=== PATIENT | female | born 1955 | race Caucasian/White ===

== ENCOUNTER 2017-04-18 08:20 | Day surgery (SDC) | payer BC ==
--- NOTE | ~2017-04-18 | OP ---
Record Of Operation [facility] [address] [place]. [address] NAME: KATIE MITCHELL : 57 STATUS : [facility]#: [id number] AGE: 61 ADM/REG DATE : 04/18/17 MR#: [id number] REPORT SERV DATE: 04/18/17 DICTATED BY: TOÑO WILLIAMSON DATE: 04/18/17 REPORT STATUS : Draft TRANSCRIBED BY: MODL DATE: 04/18/17 DATE OF PROCEDURE: 04/18/2017 PREOPERATIVE DIAGNOSIS: Right ureteropelvic junction stone. POSTOPERATIVE DIAGNOSIS: Right ureteropelvic junction stone. PROCEDURE PERFORMED: Cystoscopy, right retrograde pyelogram, right flexible ureterorenoscopy, holmium laser stone fragmentation, and stent placement. SURGEON: Toño Williamson M.D. ANESTHESIA: General. ESTIMATED BLOOD LOSS: Less than 5 mL. INDICATIONS: This is a 61-year-old white female, with history of recurrent stones, who has about a 4 or 5 mm stone at the right UPJ which has been intermittently obstructing. After discussion of management options, we have elected to proceed with endoscopic management. Risks of infection, bleeding, failure, need for further surgery have been discussed. PROCEDURE IN DETAIL: The patient was taken to the operating room and underwent a general anesthetic. She was placed in the lithotomy position on the table, and her external genitalia were sterilely prepped and draped. The 22-Pakistani cystoscope sheath with 30-degree lens was inserted under direct vision per urethra with the aid of the video monitor. The bladder was thoroughly inspected and visibility was excellent. There were no mucosa lesions. There were no stones in the bladder. There were normal-looking orifices bilaterally. There was a fairly pronounced cystocele. A right retrograde pyelogram was obtained showing a normal caliber ureter with a question of a faint filling defect right at the UPJ or proximal ureteral region of the right ureter. The right renal collecting system was not particularly dilated. An 0.038 guidewire was advanced up into the collecting system of the kidney under fluoroscopic guidance. A 9.5/11-Pakistani ureteral access sheath with obturator was advanced over the guidewire up into the proximal ureter and a second guidewire was then placed through the access sheath and advanced into the collecting system of the kidney again under the aid of fluoroscopic guidance. The access sheath and obturator were then reinserted over one of the two guidewires leaving the other in place as a safety wire. The flexible scope was advanced into the proximal ureter. There was a lot of to tortuosity just below the UPJ and in this area a stone was entrapped. I was able to manipulate it back into the renal pelvis with the scope and advance the scope up into the kidney. The renal collecting system was completely inspected. She had a couple of very tiny stones forming on calyceal papillae in a mid pole calyx. Otherwise, no free floating stones were noted other than the UPJ stone. The 200 micron laser fiber was used to mobilize the small stone that was attached to the calyceal papillae and then to fragment the free-floating larger stone up into many small fragments in the 1 mm range or so. When I was satisfied that the stone had been fragmented as well as possible, the collecting system was reinspected with no new findings noted. The scope was withdrawn down through the ureter with no stones or other Record Of Operation [address] [address] NAME: KATIE MITCHELL : 57 STATUS : [facility] PAT#: [id number] AGE: 61 ADM/REG DATE : 04/18/17 MR#: [id number] REPORT SERV DATE: 04/18/17 DICTATED BY: TOÑO WILLIAMSON DATE: 04/18/17 REPORT STATUS : Draft TRANSCRIBED BY: SHANE DATE: 04/18/17 significant findings there either. The cystoscope was then reinserted over the guidewire back into the bladder and a 6-Pakistani x 28 cm Contour stent was advanced over the guidewire such that the proximal end of the stent was observed to coil in the pelvis of the kidney under fluoroscopic guidance, and the distal end of the stent was visually observed to coil in the bladder, following removal of the guidewire. The stent was left connected to a string dangle which was taped to the patient's thigh. The bladder was drained and she was taken to recovery in stable condition. BANDAR/SHANE Toño Williamson M.D. / [id number] CC: Rudy Abarca RUTH *
[~2017-04-18 08:20] MED LIST: NAP500 PO; NEUR100 PO; NORCO1 TAB PO; PRILOSEC40 MG PO
[2017-04-18 09:27] LABS: INTERNATIONAL NORMAL RATI 1.1 UNITS (-); PARTIAL THROMBO TIME 30.9 SEC (22.5-37.2)
[2017-08-01] MEDS ORDERED: COZ25 PO (11:14)
[2017-08-01] MEDS ORDERED: V5 PO (11:15)
== END 2017-04-18 15:38 | disposition home or self-care (01) ==
LOC: SDC 08:20
PROVIDERS: Urology
PROC: 0T768DZ Dilation of Right Ureter with Intraluminal Device, Via Natural or Artificial Opening Endoscopic (ICD-10-PCS; 2017-04-18)
PROC: BT1D1ZZ Fluoroscopy of Right Kidney, Ureter and Bladder using Low Osmolar Contrast (ICD-10-PCS; 2017-04-18)
PROC: 0TF38ZZ Fragmentation in Right Kidney Pelvis, Via Natural or Artificial Opening Endoscopic (ICD-10-PCS; principal; 2017-04-18 10:00)
DX: N20.1 Calculus of ureter (principal); I10 Essential (primary) hypertension; M19.90 Unspecified osteoarthritis, unspecified site; K21.9 Gastro-esophageal reflux disease without esophagitis; Z88.1 Allergy status to other antibiotic agents; Z88.6 Allergy status to analgesic agent; Z79.1 Long term (current) use of non-steroidal anti-inflammatories (NSAID); Z79.899 Other long term (current) drug therapy; Z98.890 Other specified postprocedural states; Z90.49 Acquired absence of other specified parts of digestive tract; Z90.710 Acquired absence of both cervix and uterus; Z96.642 Presence of left artificial hip joint
CPT/HCPCS: 71020; 74420; 85610; 85730; 93005; A9270-GY; C1758; C1894; C2617; J2250; J2405; J2710; J3010; Q9967

== ENCOUNTER 2017-08-03 12:48 | Inpatient (IN) | payer OTHER ==
[2017-07-28 14:33] LABS: BASOPHILS 0.4 %; BASOPHILS ABSOLUTE 0.02 10/3/uL (0.0-0.16); EOSINOPHILS 4.4 %; EOSINOPHILS ABSOLUTE 0.23 10/3/uL (0.0-0.53); HEMATOCRIT 38.7 % (36.0-48.0); HEMOGLOBIN 12.7 g/dL (12.0-16.0); LYMPHOCYTES 44.1 %; LYMPHOCYTES ABSOLUTE 2.29 10/3/uL (0.67-4.30); MEAN CORPUS HGB CONC 32.8 g/dL (32.0-36.0); MEAN CORPUSCULAR HEMOGLOB 29.5 pg (26.0-34.0); MEAN PLATELET VOLUME 10.9 fL (9.2-13.0); MONOCYTES 6.7 %; MONOCYTES ABSOLUTE 0.35 10/3/uL (0.21-1.20); NEUTROPHILS 44.4 %; PLATELET COUNT 240 10/3/uL (150-400); RBC DISTRIBUTION WIDTH 13.5 % (12.0-16.0)
[2017-07-28 14:34] LABS: MANUAL DIFF NO %; WHITE BLOOD CELLS 5.2 10/3/uL (4.5-10.5)
[2017-07-28 14:40] LABS: INTERNATIONAL NORMAL RATI 1.1 UNITS (-); PROTIME (NOT ORD) 13.8 SEC (12.0-14.5)
[2017-07-28 14:47] LABS: ASCORBIC ACID (UR NOT ORDER) NEG (NEG); BILIRUBIN, URINE NEGATIVE (NEG); KETONE, URINE NEGATIVE (NEG); WBC (NOT ORDERED) (RFLEX) 1 (0-5)
[2017-07-28 14:48] LABS: LEUKOCYTE ESTERASE(NOT OR TRACE (NEG)
[2017-07-28 15:08] LABS: A/G RATIO 1.4 (0.7-1.9); ALKALINE PHOSPHATASE 108 U/L (45-117); CALCIUM, SERUM 8.7 MG/DL (8.5-10.4); CHLORIDE, SERUM 106 MMOL/L (96-112); CO2 (CARBON DIOXIDE) 29 MMOL/L (24-34); CREATININE 0.92 MG/DL (0.55-1.02); GFR AFRICAN AMERICAN 78 ML/MIN (>=60); GFR NON AFRICAN AMERICAN 68 ML/MIN (>=60); GLUCOSE, SERUM 98 MG/DL (60-99); POTASSIUM, SERUM 4.2 MMOL/L (3.5-5.3); SGOT(AST) 17 U/L (5-40); SGPT(ALT) 21 U/L (5-65); SODIUM, SERUM 140 MMOL/L (135-148); TOTAL BILIRUBIN 0.5 MG/DL (0-1.2); TOTAL PROTEIN 6.9 G/DL (6.0-8.5)
[2017-07-28 15:09] LABS: BUN (BLOOD UREA NITROGEN) 17 MG/DL (6-23); GLOBULIN 2.9 G/DL (2.5-4.1)
[~2017-08-03] VITALS: Ht 167.6 cm; Wt 59.0 kg
--- NOTE | ~2017-08-03 | OP ---
Record Of Operation [facility] [address] [place]. 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 POSTOPERATIVE DIAGNOSIS: Failed left hip femoral component. PROCEDURE: Left hip femoral revision. AERIAL CROP DUSTER: See chart. INDICATIONS: A 61-year-old female who had a left total hip done by another surgeon. She has progressive pain in her left femur and x-ray finding is suggestive of femoral loosening with cortical thickening of the tip. She was indicated for exploration and femoral revision. DESCRIPTION OF PROCEDURE: The patient was taken to the operating room and placed supine on the table in normal fashion without incident. General anesthetic induced per the anesthesiologist. Patient was carefully positioned, padded, prepped, and draped in normal sterile fashion. Sharp dissection was made through a portion of the old incision with electrocautery through the fat. The IT band was split in line with its fibers. A Charnley retractor was placed over moist laps. Soft tissue was elevated off the posterior capsule and posterior capsulectomy was performed. The hip was dislocated. The femoral ball was removed. A flexible osteotome was easily passed around the proximal aspect of this femoral component, which was then grasped with an Innomed extractor and easily removed. Attention was directed back to the acetabulum, it was carefully inspected visually and by palpation. I pushed hard on it and found no evidence by visualization or palpation of any loosening whatsoever. The liner had no measurable wear. I then directed attention to the femur, this was prepared with a long drill, reverse biting curette, and sequential reamers up to a 16 with broaches up to a 16.5 small. This gave excellent stability. The stem was placed and impacted, an 8 inch stem. A single cable was then passed around the trochanter to stabilize it against the proximal aspect of the femoral component. After a trial reduction was obtained and was done, I actually chose to correct the femoral ball and place it in a cleansed trunnion. The hip was relocated and this recreated the leg length that she had preoperatively. The wound was copiously irrigated and closed in a layered fashion over a medium ConstaVac drain distally and anteriorly. COMPLICATIONS: None. SPECIMENS: None except for the removed component cultures. ESTIMATED BLOOD LOSS: About 200 mL. WTB/MODL Record Of [address] [address] NAME: KATIE MITCHELL : 57 STATUS : ADM IN PAT#: [id number] AGE: 61 ADM/REG DATE : 08/03/17 MR#: [id number] REPORT SERV DATE: 08/04/17 DICTATED BY: FRANCK SPANGLER DATE: 08/04/17 REPORT STATUS : Draft TRANSCRIBED BY: MODKeyon DATE: 08/04/17 Errol Spangler M.D. / [id number] CC: Rudy Stuart RUTH *
[~2017-08-03 12:48] MED LIST changes: +COZ25 PO; +V5 PO
[2017-08-04 05:30] LABS: CALCIUM, SERUM 8.6 MG/DL (8.5-10.4); CHLORIDE, SERUM 105 MMOL/L (96-112); CO2 (CARBON DIOXIDE) 26 MMOL/L (24-34); CREATININE 0.79 MG/DL (0.55-1.02); GFR AFRICAN AMERICAN 94 ML/MIN (>=60); GFR NON AFRICAN AMERICAN 81 ML/MIN (>=60); POTASSIUM, SERUM 4.6 MMOL/L (3.5-5.3); SODIUM, SERUM 138 MMOL/L (135-148)
[2017-08-04 05:31] LABS: BUN (BLOOD UREA NITROGEN) 11 MG/DL (6-23); GLUCOSE, SERUM 131 MG/DL (60-99)
[2017-08-04 05:33] LABS: INTERNATIONAL NORMAL RATI 1.1 UNITS (-); PROTIME (NOT ORD) 14.4 SEC (12.0-14.5)
[2017-08-04 05:34] LABS: HEMATOCRIT 29.4 % (36.0-48.0); HEMOGLOBIN 9.5 g/dL (12.0-16.0)
[2017-08-05 05:29] LABS: INTERNATIONAL NORMAL RATI 2.6 UNITS (-)
[2017-08-05 05:32] LABS: PROTIME (NOT ORD) 27.3 SEC (12.0-14.5)
[2017-08-05 05:40] LABS: HEMOGLOBIN 7.7 g/dL (12.0-16.0)
[2017-08-05 05:45] LABS: HEMATOCRIT 23.6 % (36.0-48.0)
[2017-08-05] MEDS ORDERED: C2 PO (12:07)
[2017-08-05] MEDS ORDERED: NORCO1 TA2 PO (12:08)
== END 2017-08-05 13:59 | disposition home or self-care (01) | DRG 468 ==
LOC: ENRESERVDT → ENRESERV → ENRESERVTM → SDC/OF 12:48 → 3SO 12:48
PROVIDERS: Specialist
PROC: 0SRS01Z Replacement of Left Hip Joint, Femoral Surface with Metal Synthetic Substitute, Open Approach (ICD-10-PCS; principal; 2017-08-04)
PROC: 0SPS0JZ Removal of Synthetic Substitute from Left Hip Joint, Femoral Surface, Open Approach (ICD-10-PCS; 2017-08-04)
DX: T84.031A Mechanical loosening of internal left hip prosthetic joint, initial encounter (principal); G62.9 Polyneuropathy, unspecified; I10 Essential (primary) hypertension; Y79.8 Miscellaneous orthopedic devices associated with adverse incidents, not elsewhere classified; F41.9 Anxiety disorder, unspecified; F32.9 Major depressive disorder, single episode, unspecified; K21.9 Gastro-esophageal reflux disease without esophagitis; Z88.8 Allergy status to other drugs, medicaments and biological substances; Z79.899 Other long term (current) drug therapy; Z79.891 Long term (current) use of opiate analgesic
CPT/HCPCS: 36415; 71020; 72170; 80048; 80053; 81001; 85014; 85018; 85025; 85610; 86850; 86900; 86901; 87015; 87070; 87075; 87102; 87116; 87205; 87641; 88300; 88304; 88311; 93005; 97110-GP; 97116-GP; 97161-GP; 97165-GO; A9270-GY; C1776; J0690; J1170; J1885; J2250; J2270; J2405; J2710; J2795; J3010; J3370